=== PATIENT | female | born 1980 | race Two or more races ===

== ENCOUNTER 2018-09-13 17:30 | Emergency (ER) | payer MEDICAID ==
[~2018-09-13] VITALS: Ht 154.9 cm; Wt 56.7 kg
[2018-09-13 17:46] VITALS: BP 111/72
[2018-09-13] MEDS ORDERED: HYDROcodone-ACET 10/325MG TAB PO ONE (18:15)
[2018-09-13] MEDS ORDERED: IBUPROFEN 400 MG TAB PO ONE (18:30)
== END 2018-09-13 19:22 | disposition home or self-care (01) ==
LOC: ER 17:32
DX: S16.1XXA Strain of muscle, fascia and tendon at neck level, initial encounter (principal); S40.011A Contusion of right shoulder, initial encounter; S09.90XA Unspecified injury of head, initial encounter; V86.55XA Driver of 3- or 4- wheeled all-terrain vehicle (ATV) injured in nontraffic accident, initial encounter; Y93.89 Activity, other specified; Y99.8 Other external cause status; Y92.89 Other specified places as the place of occurrence of the external cause
CPT/HCPCS: 70450; 72125; 73030